=== PATIENT | female | born 1955 | race Caucasian/White ===

== ENCOUNTER 2023-07-17 19:11 | Emergency (ER) | payer OTHER, MEDICAID ==
[~2023-07-17] VITALS: Ht 167.6 cm; Wt 80.0 kg
[2023-07-17] MEDS ORDERED: ACET1CAP14 PO (21:42)
[2023-07-17] MEDS ORDERED: BACL5TAB2 PO (21:42)
[2023-07-17] MEDS ORDERED: HYDROcodone-ACET 5/325MG TAB PO ONE (21:45)
[2023-07-17 22:00] VITALS: BP 141/65; PULSE 78; RESP 18; TEMP 98.4; O2SAT 98
== END 2023-07-17 22:03 | disposition home or self-care (01) ==
LOC: EDBD 19:11 → ER 19:18
DX: S13.8XXA Sprain of joints and ligaments of other parts of neck, initial encounter (principal); S43.491A Other sprain of right shoulder joint, initial encounter; M50.322 Other cervical disc degeneration at C5-C6 level; I10 Essential (primary) hypertension; Z79.899 Other long term (current) drug therapy; V89.2XXA Person injured in unspecified motor-vehicle accident, traffic, initial encounter; Y93.89 Activity, other specified; Y92.89 Other specified places as the place of occurrence of the external cause; Y99.8 Other external cause status
CPT/HCPCS: 72125; 73030